=== PATIENT | male | born 1960 | race Caucasian/White ===

== ENCOUNTER 2017-02-02 17:08 | Emergency (ER) | payer OTHER ==
[2017-02-02] MEDS ORDERED: ASPIRIN 81 MG TABLET, CHEWABLE PO ONE (17:56)
--- NOTE | 2017-02-02 17:57 | ER Document Report ---
ED Medical Screen (RME) - General Chief Complaint: Chest Pain Stated Complaint: CHEST TIGHTNESS,LEFT ARM PAIN Time Seen by Provider: 02/02/17 17:56 Mode of Arrival: Ambulatory Information source: Patient Notes: 56-year-old male presents with complaints of chest pain left arm tingling sensation and headache. Patient denies any fevers or chills nausea vomiting diarrhea. Patient has a history of diabetes hypertension. Patient had a completely clean heart cath 2 years ago at [facility] have greeted and performed a rapid initial assessment of this patient. A comprehensive ED assessment and evaluation of the patient, analysis of test results and completion of the medical decision making process will be conducted by additional ED providers. PHYSICAL EXAMINATION: GENERAL: Well-appearing, well-nourished and in no acute distress. HEAD: Atraumatic, normocephalic. EYES: Pupils equal round extraocular movements intact, conjunctiva are normal. ENT: Nares patent NECK: Normal range of motion LUNGS: No respiratory distress Musculoskeletal: Normal range of motion NEUROLOGICAL: Normal speech, normal gait. PSYCH: Normal mood, normal affect. SKIN: Warm, Dry, normal turgor, no rashes or lesions noted. TRAVEL OUTSIDE OF THE [place] IN LAST 30 DAYS: No - Related Data Allergies/Adverse Reactions: codeine [Codeine] Allergy (Severe, Verified 02/02/17 17:18) morphine [Morphine] Allergy (Severe, Verified 02/02/17 17:18) Past Medical History - Past Medical History Cardiac Medical History: Reports: Hx Hypercholesterolemia, Hx Hypertension Renal/ Medical History: Denies: Hx Peritoneal Dialysis GI Medical History: Reports: Hx Gastroesophageal Reflux Disease Past Surgical History: Reports: Hx Cardiac Catheterization - 2014, Hx Tonsillectomy - Immunizations Hx Diphtheria, Pertussis, Tetanus Vaccination: Yes - unknown Physical Exam - Vital signs Vitals: Temp Pulse BP Pulse Ox 98.5 F 85 136/92 H 93 02/02/17 17:16 02/02/17 17:16 02/02/17 17:16 02/02/17 17:16 Course - Vital Signs Vital signs: Temp Pulse Resp BP Pulse Ox 98.5 F 85 136/92 H 93 02/02/17 17:16 02/02/17 17:16 02/02/17 17:16 02/02/17 17:16
[2017-02-02 18:54] LABS: ABSOLUTE EOSINOPHILS # (AUTO) 0.1 10^3/uL (0.0-0.6); ABSOLUTE LYMPHOCYTES (AUTO) 1.7 10^3/uL (0.5-4.7); ABSOLUTE MONOCYTES (AUTO) 0.6 10^3/uL (0.1-1.4); ABSOLUTE NEUT (AUTO) 4.1 10^3/uL (1.7-8.2); BASOPHILS % (AUTO) 0.2 % (0-2); EOSINOPHILS % (AUTO) 2.2 % (0-6); HEMATOCRIT 45.4 % (37.9-51.0); HEMOGLOBIN 15.6 g/dL (13.5-17.0); HGB HCT DIFFERENCE 1.4; LYMPHOCYTES % (AUTO) 26.1 % (13-45); MEAN CORPUSCULAR HEMOGLOBIN 31.5 pg (27.0-33.4); MEAN CORPUSCULAR HGB CONC 34.2 g/dL (32.0-36.0); MEAN CORPUSCULAR VOLUME 92 fl (80-97); MONOCYTES % (AUTO) 9.5 % (3-13); RED BLOOD COUNT 4.94 10^6/uL (4.35-5.55); RED CELL DISTRIBUTION WIDTH 13.3 % (11.5-14.0); WHITE BLOOD COUNT 6.7 10^3/uL (4.0-10.5)
[2017-02-02 19:05] VITALS: BP 152/102
[2017-02-02 19:16] LABS: ALANINE AMINOTRANSFERASE 44 U/L (21-72); ALBUMIN 4.1 g/dL (3.5-5.0); ALKALINE PHOSPHATASE 59 U/L (38-126); ANION GAP 12 (5-19); ASPARTATE AMINO TRANSFERASE 26 U/L (17-59); BILIRUBIN,DIRECT 0.4 mg/dL (0.0-0.4); BILIRUBIN,TOTAL 0.4 mg/dL (0.2-1.3); BLOOD UREA NITROGEN 17 mg/dL (7-20); CALCIUM 9.6 mg/dL (8.4-10.2); CARBON DIOXIDE 25 mmol/L (22-30); CHLORIDE 103 mmol/L (98-107); CREATINE KINASE 127 U/L (55-170); CREATININE RESULT 0.97 mg/dL (0.52-1.25); GLUCOSE 190 mg/dL (75-110); POTASSIUM 4.3 mmol/L (3.6-5.0); SODIUM 139.8 mmol/L (137-145); TOTAL PROTEIN 7.2 g/dL (6.3-8.2)
--- NOTE | 2017-02-02 19:17 | RADIOLOGY REPORT (SQ) ---
EXAM DESCRIPTION: CHEST SINGLE VIEW COMPLETED DATE/TIME: 02/02/2017 7:08 pm REASON FOR STUDY: left sided chest pain COMPARISON: June 2015 EXAM PARAMETERS: NUMBER OF VIEWS: One view. TECHNIQUE: Single frontal radiographic view of the chest acquired. RADIATION DOSE: NA LIMITATIONS: None. FINDINGS: LUNGS AND PLEURA: No opacities, masses or pneumothorax. No pleural effusion. MEDIASTINUM AND HILAR STRUCTURES: No masses. Contour normal. HEART AND VASCULAR STRUCTURES: Heart normal in size. Normal vasculature. BONES: No acute findings. HARDWARE: None in the chest. OTHER: No other significant finding. IMPRESSION: NO ACUTE RADIOGRAPHIC FINDING IN THE CHEST. TECHNICAL DOCUMENTATION: JOB ID: [id number]
[2017-02-02 19:32] LABS: CREATINE KINASE MB 1.19 ng/mL (<4.55)
[2017-02-02 19:35] LABS: TROPONIN I < 0.012 ng/mL
[2017-02-02] MEDS ORDERED: IBUPROFEN 800 MG TABLET PO ONE (19:42)
--- NOTE | 2017-02-02 19:42 | ER Document Report ---
ED Cardiac - General Chief Complaint: Chest Pain Stated Complaint: CHEST TIGHTNESS,LEFT ARM PAIN Time Seen by Provider: 02/02/17 17:56 Mode of Arrival: Ambulatory TRAVEL OUTSIDE OF THE [place] IN LAST 30 DAYS: No - HPI Patient complains to provider of: Other - left shoulder tightness since yesterday, states he was laying a floor two days ago. He states Use of: denies: Alcohol, Amphetamines, Bath salts, Caffeine, Cocaine, Decongestants, Other Was the onset of pain: Gradual When did pain begin: yesterday afternoon Is the pain a: New problem Chest pain location: Other - starts left medial arm into his neck Quality of pain: Constant, Achy Chest pain radiation location: Neck. denies: Left jaw, Left arm, Right jaw, Right arm, Back Severity now: Mild Severity at worst: Mild Chest pain precipitating factors: At Rest Cardiac risk factors: Diabetes, Hypertension, Dyslipidemia. denies: Smoker, + Family history, Hx CHF, Hx CT Positive cardiac history: No Associated symptoms: None Exacerbated by: Activity Relieved by: Rest Similar symptoms previously: Yes Recently seen / treated by doctor: No - Related Data Allergies/Adverse Reactions: codeine [Codeine] Allergy (Severe, Verified 02/02/17 17:18) morphine [Morphine] Allergy (Severe, Verified 02/02/17 17:18) Past Medical History - General Information source: Patient - Social History Smoking Status: Former Smoker Chew tobacco use (# tins/day): No Frequency of alcohol use: Occasional Drug Abuse: None Family History: Reviewed & Not Pertinent Patient has suicidal ideation: No Patient has homicidal ideation: No - Past Medical History Cardiac Medical History: Reports: Hx Hypercholesterolemia, Hx Hypertension Renal/ Medical History: Denies: Hx Peritoneal Dialysis GI Medical History: Reports: Hx Gastroesophageal Reflux Disease Past Surgical History: Reports: Hx Cardiac Catheterization - 2015, Hx Tonsillectomy - Immunizations Hx Diphtheria, Pertussis, Tetanus Vaccination: Yes - unknown Review of Systems - Review of Systems Notes: REVIEW OF SYSTEMS: CONSTITUTIONAL : Denies fever, chills, or sweats. Denies recent illness. EENT: Denies eye, ear, throat, or mouth pain or symptoms. Denies nasal or sinus congestion or discharge. Denies throat, tongue, or mouth swelling or difficulty swallowing. CARDIOVASCULAR: Denies chest pain. Denies palpitations or racing or irregular heart beat. Denies ankle edema. RESPIRATORY: Denies cough, cold, or chest congestion. Denies shortness of breath, difficulty breathing, or wheezing. GASTROINTESTINAL: Denies abdominal pain or distention. Denies nausea, vomiting , or diarrhea. Denies blood in vomitus, stools, or per rectum. Denies black, tarry stools. Denies constipation. GENITOURINARY: Denies difficulty urinating, painful urination, burning, frequency, blood in urine, or discharge. MUSCULOSKELETAL: Denies any muscle spasms, difficulty walking, extremity pain SKIN: Denies rash, lesions or sores. HEMATOLOGIC : Denies easy bruising or bleeding. LYMPHATIC: Denies swollen, enlarged glands. NEUROLOGICAL: Denies confusion or altered mental status. Denies passing out or loss of consciousness. Denies dizziness or lightheadedness. Denies headache. Denies weakness or paralysis or loss of use of either side. Denies problems with gait or speech. Denies sensory loss, numbness, or tingling. Denies seizures. PSYCHIATRIC: Denies anxiety or stress. Denies depression, suicidal ideation, or homicidal ideation. ALL OTHER SYSTEMS REVIEWED AND NEGATIVE. Dictation was performed using [employer] voice recognition software Physical Exam - Vital signs Vitals: Temp Pulse BP Pulse Ox 98.5 F 85 136/92 H 93 02/02/17 17:16 02/02/17 17:16 02/02/17 17:16 02/02/17 17:16 - Notes Notes: PHYSICAL EXAM GENERAL: Alert, interacts well. HEAD: Normocephalic, atraumatic. EYES: Pupils equal, round, and reactive to light. Extraocular movements intact. ENT: Oral mucosa moist, tongue midline. NECK: Full range of motion. Supple. Trachea midline. LUNGS: Clear to auscultation bilaterally, no wheezes, rales, or rhonchi. No respiratory distress. Chest nontender HEART: Regular rate and rhythm. No murmurs, gallops, or rubs. ABDOMEN: Soft, nondistended, nontender. No guarding, rebound, or rigidity.. Bowel sounds present in all 4 quadrants. EXTREMITIES: pain to palpation of left anterior shoulder and trapezius with pain reproducible to palpation. Moves all 4 extremities spontaneously. No edema , radial and dorsalis pedis pulses 2/4 bilaterally. No cyanosis. NEUROLOGICAL: Alert and oriented x4. Normal speech. PSYCH: Normal affect, normal mood. SKIN: Warm, dry, normal turgor. No rashes or lesions noted. Course - Re-evaluation Re-evalutation: 02/02/17 20:03 Patient is very well in appearance, vitals within normal limits. PE suggests muscle strain of the left shoulder. Low clinical suspicion for ACS given clinical history, exam, EKG without ST elevations or depressions, and negative initial troponin. HEART score less than or equal to 3. PE also seems unlikely given clinical history, absence of tachycardia or dyspnea. Well's score of 0. CXR without evidence of pneumothorax or pneumonia. No widened mediastinum. Aortic dissection also seems unlikely given history, symmetric pulses, CXR, and vitals. At this time will discharge with return precautions and follow-up recommendations. Verbal discharge instructions given a the bedside and opportunity for questions given. Medication warnings reviewed. Patient is in agreement with this plan and has verbalized understanding of return precautions and the need for primary care follow-up in the next 24-72 hours. - Vital Signs Vital signs: Temp Pulse Resp BP Pulse Ox 98.5 F 85 18 152/102 H 97 02/02/17 17:16 02/02/17 17:16 02/02/17 19:01 02/02/17 19:00 02/02/17 19:01 - Laboratory Result Diagrams: 02/02/17 18:45 02/02/17 18:45 Laboratory results interpreted by me: 02/02/17 18:45 Glucose 190 H - Diagnostic Test Radiology reviewed: Image reviewed, Reports reviewed - EKG Interpretation by Al EKG shows normal: Sinus rhythm Rate: Normal Rhythm: NSR When compared to previous EKG there are: No significant change Discharge - Discharge Clinical Impression: Left shoulder pain Qualifiers: Chronicity: acute Qualified Code(s): M25.512 - Pain in left shoulder Condition: Good Disposition: HOME, SELF-CARE Instructions: Muscle Strain ([facility]), Exercise Program for the Shoulder ([facility]), Shoulder Injury ([facility]), Use of [id number] Ibuprofen ([facility]), Ice & Elevation ([facility]) Prescriptions: Cyclobenzaprine HCl [Flexeril 10 mg Tablet] 10 mg PO TIDP PRN #15 tab PRN Reason: Forms: Return to Work
--- NOTE | 2017-02-03 08:12 | EKG REPORT ---
SEVERITY:- BORDERLINE ECG - SINUS RHYTHM BORDERLINE LEFT AXIS DEVIATION NONSPECIFIC ST-T CHANGES- INFERIOR LEADS : Confirmed by: Mj Caceres MD 03-Feb-2017 08:12:16
== END 2017-02-02 20:06 | disposition home or self-care (01) ==
LOC: ER 17:08
DX: M25.512 Pain in left shoulder (principal); R07.9 Chest pain, unspecified; K21.9 Gastro-esophageal reflux disease without esophagitis; E78.00 Pure hypercholesterolemia, unspecified; E11.9 Type 2 diabetes mellitus without complications; I10 Essential (primary) hypertension; Z88.6 Allergy status to analgesic agent; Z87.891 Personal history of nicotine dependence
CPT/HCPCS: 36415; 71010; 80053; 82550; 82553; 84484; 85025; 93005; 93010; 99285

== ENCOUNTER 2018-08-22 16:57 | Emergency (ER) | payer OTHER ==
[2018-08-22] MEDS ORDERED: NAPROXEN 250 MG TABLET PO ONE (17:39)
--- NOTE | 2018-08-22 17:39 | ER Document Report ---
ED General - General Chief Complaint: Facial Injury Stated Complaint: FACIAL INJURY Time Seen by Provider: 08/22/18 17:33 Primary Care Provider: ENID VALDERRAMA MD [ACTIVE STAFF] - Follow up in 3-5 days (primary care ) Notes: Patient is a 57-year-old male that presents to the emergency department for chief complaint of facial pain after injury. Patient states that he fell earlier today and he tripped and fell onto a counter and struck his upper lip on the counter. This occurred around 230 this afternoon. He denies loss of consciousness, denies any tooth injury or tripping his teeth or losing teeth. He denies any significant bleeding from injury. At this time he mainly complains of facial pain across his maxillary sinuses. Denies vision changes, blurred vision, loss of vision. He currently rates his pain as a 5 out of 10 describes as a constant aching sensation bilaterally across his face. Past Medical History: Denies chronic medical conditions Past Surgical History: Denies surgical history Social History: Denies tobacco use, admits to occasional alcohol use, denies illicit drug use. Family History: Reviewed and noncontributory for presenting illness Allergies: Reviewed, see documented allergy list. REVIEW OF SYSTEMS: Other than noted above, the 12 point review of systems was reviewed with the patient and were negative, all pertinent findings are included in the HPI. PHYSICAL EXAMINATION: Vital signs reviewed, nursing noted reviewed. GENERAL: Well-appearing, well-nourished and in no acute distress. HEAD: Minor abrasion to the upper lip, no step-offs or deformities. There is tenderness with palpation over the zygoma bilaterally, without step-off or deformity. EYES: Eyes appear normal, extraocular movements intact, sclera anicteric, conjunctiva are normal. ENT: nares patent, oropharynx clear without exudates. Moist mucous membranes. Teeth are well aligned, no step-off, mandible is nontender. No loose teeth appreciated. With palpation with tongue blade, TMs appear normal bilaterally, no hemotympanum, CSF rhinorrhea or otorrhea. NECK: Normal range of motion, supple without lymphadenopathy LUNGS: Breath sounds clear to auscultation bilaterally and equal. No wheezes rales or rhonchi. HEART: Regular rate and rhythm without murmurs ABDOMEN: Soft, nontender, normoactive bowel sounds. No rebound, guarding, or rigidity. No masses appreciated. EXTREMITIES: Nontender, good range of motion, no pitting or edema. NEUROLOGICAL: No focal neurological deficits. Moves all extremities spontaneously Motor and sensory grossly intact on exam. PSYCH: Normal mood, normal affect. SKIN: Warm, Dry, normal turgor, no rashes or lesions noted on exposed skin TRAVEL OUTSIDE OF THE [place] IN LAST 30 DAYS: No - Related Data Allergies/Adverse Reactions: codeine [Codeine] Allergy (Severe, Verified 02/02/17 17:18) morphine [Morphine] Allergy (Severe, Verified 02/02/17 17:18) Past Medical History - Social History Smoking Status: Former Smoker Family History: Reviewed & Not Pertinent - Past Medical History Cardiac Medical History: Reports: Hx Hypercholesterolemia, Hx Hypertension Renal/ Medical History: Denies: Hx Peritoneal Dialysis GI Medical History: Reports: Hx Gastroesophageal Reflux Disease Past Surgical History: Reports: Hx Cardiac Catheterization - 2014, Hx Tonsillectomy - Immunizations Hx Diphtheria, Pertussis, Tetanus Vaccination: Yes - unknown Physical Exam - Vital signs Vitals: Temp Pulse Resp BP Pulse Ox 98.5 F 81 16 158/95 H 95 08/22/18 17:02 08/22/18 17:02 08/22/18 17:02 08/22/18 17:02 08/22/18 17:02 Course - Re-evaluation Re-evalutation: Patient seen and examined, vital signs reviewed, did have some tenderness palpation over the across the face, without acute or gross deformities, however will obtain CT imaging of the facial bones to evaluate for any deep bony injury due to the nature of the patient's injury pattern. Patient was given naproxen for his pain. CT imaging came back, and was negative for any acute bony injury of the facial bones. Patient advised follow-up with a primary care physician, and given a prescription for naproxen to take for pain. - Vital Signs Vital signs: Temp Pulse Resp BP Pulse Ox 98.5 F 81 16 158/95 H 95 08/22/18 17:02 08/22/18 17:02 08/22/18 17:02 08/22/18 17:02 08/22/18 17:02 Discharge - Discharge Clinical Impression: Facial injury Qualifiers: Encounter type: initial encounter Qualified Code(s): S09.93XA - Unspecified injury of face, initial encounter Condition: Stable Disposition: HOME, SELF-CARE Instructions: Contusion ([facility]) Additional Instructions: Your imaging today did not demonstrate any broken bones or fractures, you did injure your face, which can cause pain over the next several days, you have been prescribed an anti-inflammatory medication to help alleviate some of this pain, you can also take Tylenol with this medication but do not take any Motrin, ibuprofen or Aleve. Prescriptions: Naproxen [Naprosyn] 500 mg PO BID PRN #30 tablet PRN Reason: general pain Referrals: ENID VALDERRAMA MD [ACTIVE STAFF] - Follow up in 3-5 days (primary care )
--- NOTE | 2018-08-22 18:37 | RADIOLOGY REPORT (SQ) ---
EXAM DESCRIPTION: CT FACIAL AREA WITHOUT COMPLETED DATE/TIME: 08/22/2018 6:18 pm REASON FOR STUDY: facial injury, pain of zygoma b/l COMPARISON: None. TECHNIQUE: Noncontrasted images through the facial bones and orbits windowed for bone and soft tissu e. Additional coronal and sagittal reconstructed images reviewed. All images stored on PACS. All CT scanners at this facility use dose modulation, iterative reconstruction, and/or weight based d osing when appropriate to reduce radiation dose to as low as reasonably achievable (ALARA). [facility]: Dose Right [facility]: CareDose [facility]: Dose Right [facility]: Teradose 4D [facility]: [employer] RADIATION DOSE: CT Rad equipment meets quality standard of care and radiation dose reduction techniq ues were employed. CTDIvol: 30.4 mGy. DLP: 602 mGy-cm. mGy. LIMITATIONS: None. FINDINGS: FACIAL BONES: No fracture or bone lesion. ORBITS: Intact. No fracture. Symmetric intact globes and retroorbital soft tissues. PARANASAL SINUSES: Mucous retention cyst in the left maxillary sinus. No nasal polyps. Maxillary sin us outlets are patent. SOFT TISSUES: No mass or edema. INFERIOR BRAIN: Limited view. No acute findings. OTHER: No other significant finding. IMPRESSION: NO ACUTE FINDINGS. TECHNICAL DOCUMENTATION: JOB ID: [id number] Quality ID # [id number]: Final reports with documentation of one or more dose reduction techniques (e.g., Au tomated exposure control, adjustment of the mA and/or kV according to patient size, use of iterative reconstruction technique) 2010 [employer]- All Rights Reserved Reading location - IP/workstation name: [email or web address]
[2018-08-22 19:40] VITALS: BP 149/97
== END 2018-08-22 19:42 | disposition home or self-care (01) ==
LOC: ER 16:57
DX: S09.93XA Unspecified injury of face, initial encounter (principal); R51 Headache; W18.00XA Striking against unspecified object with subsequent fall, initial encounter; I10 Essential (primary) hypertension
CPT/HCPCS: 70486; 99283

== ENCOUNTER 2018-10-27 12:11 | Emergency (ER) | payer OTHER ==
--- NOTE | 2018-10-27 14:36 | ER Document Report ---
ED Medical Screen (RME) - General Chief Complaint: Chest Pain Stated Complaint: CHEST PAIN Time Seen by Provider: 10/27/18 14:28 Mode of Arrival: Ambulatory Information source: Patient TRAVEL OUTSIDE OF THE [place] IN LAST 30 DAYS: No - HPI Patient complains to provider of: dizziness Notes: 10/27/18 14:35 Patient here feeling tired somewhat dizzy feeling he is in a fog and having some occasional chest tightness. No shortness of breath. He does have a history of diabetes, hypertension. They recently increased 1 of his antidiabetic medications, he states that his blood sugars have been running anywhere from 67 to the mid 100s which is much lower than normal for him. The increase the dose of this medication 2 weeks ago. Exam No distress, nontoxic-appearing. Lungs clear and equal throughout. Heart sounds normal. Nonfocal neurological exam. Plan CBC, CMP, troponin, TSH, EKG, chest x-ray An initial examination was made on the patient as part of the triage process, and it was determined a more comprehensive evaluation was necessary. Initial labs were ordered and patient was transferred to another provider in the ED who assumed care and finished evaluation and plan. - Related Data Allergies/Adverse Reactions: codeine [Codeine] Allergy (Severe, Verified 02/02/17 17:18) morphine [Morphine] Allergy (Severe, Verified 02/02/17 17:18) Past Medical History - Past Medical History Cardiac Medical History: Reports: Hx Hypercholesterolemia, Hx Hypertension Endocrine Medical History: Reports: Hx Diabetes Mellitus Type 2 Renal/ Medical History: Denies: Hx Peritoneal Dialysis GI Medical History: Reports: Hx Gastroesophageal Reflux Disease Past Surgical History: Reports: Hx Cardiac Catheterization - 2014, Hx Tonsillectomy - Immunizations Hx Diphtheria, Pertussis, Tetanus Vaccination: Yes - unknown Physical Exam - Vital signs Vitals: Temp Pulse Resp BP Pulse Ox 98.7 F 79 14 119/75 98 10/27/18 12:25 10/27/18 12:25 10/27/18 12:25 10/27/18 12:25 10/27/18 12:25 Course - Vital Signs Vital signs: Temp Pulse Resp BP Pulse Ox 98.7 F 79 14 119/75 98 10/27/18 12:25 10/27/18 12:25 10/27/18 12:25 10/27/18 12:25 10/27/18 12:25
[2018-10-27 15:09] LABS: ABSOLUTE EOSINOPHILS # (AUTO) 0.2 10^3/uL (0.0-0.6); ABSOLUTE LYMPHOCYTES (AUTO) 1.4 10^3/uL (0.5-4.7); ABSOLUTE MONOCYTES (AUTO) 0.6 10^3/uL (0.1-1.4); ABSOLUTE NEUT (AUTO) 5.2 10^3/uL (1.7-8.2); BASOPHILS % (AUTO) 0.7 % (0-2); EOSINOPHILS % (AUTO) 2.4 % (0-6); HEMATOCRIT 47.2 % (37.9-51.0); LYMPHOCYTES % (AUTO) 19.5 % (13-45); MEAN CORPUSCULAR HEMOGLOBIN 31.2 pg (27.0-33.4); MEAN CORPUSCULAR HGB CONC 33.9 g/dL (32.0-36.0); MEAN CORPUSCULAR VOLUME 92 fl (80-97); MONOCYTES % (AUTO) 7.8 % (3-13); PLATELET COUNT 252 10^3/uL (150-450); RED BLOOD COUNT 5.13 10^6/uL (4.35-5.55); RED CELL DISTRIBUTION WIDTH 13.7 % (11.5-14.0); SEGMENTED NEUTROPHILS % (AUTO) 69.6 % (42-78); TOTAL CELLS COUNTED % (AUTO) 100 %; WHITE BLOOD COUNT 7.4 10^3/uL (4.0-10.5)
--- NOTE | 2018-10-27 15:18 | RADIOLOGY REPORT (SQ) ---
EXAM DESCRIPTION: CHEST SINGLE VIEW COMPLETED DATE/TIME: 10/27/2018 3:04 pm REASON FOR STUDY: chest pain COMPARISON: 06/30/2015 EXAM PARAMETERS: NUMBER OF VIEWS: One view. TECHNIQUE: Single frontal radiographic view of the chest acquired. RADIATION DOSE: NA LIMITATIONS: None. FINDINGS: LUNGS AND PLEURA: No opacities, masses or pneumothorax. No pleural effusion. MEDIASTINUM AND HILAR STRUCTURES: No masses. Contour normal. HEART AND VASCULAR STRUCTURES: Heart normal in size. Normal vasculature. BONES: No acute findings. HARDWARE: None in the chest. OTHER: No other significant finding. IMPRESSION: NO ACUTE RADIOGRAPHIC FINDING IN THE CHEST. TECHNICAL DOCUMENTATION: JOB ID: [id number] [employer]- All Rights Reserved Reading location - IP/workstation name: [email or web address]
[2018-10-27 15:25] LABS: ALANINE AMINOTRANSFERASE 52 U/L (21-72); ALBUMIN 4.3 g/dL (3.5-5.0); ALKALINE PHOSPHATASE 50 U/L (38-126); ANION GAP 10 (5-19); ASPARTATE AMINO TRANSFERASE 27 U/L (17-59); BILIRUBIN,DIRECT 0.2 mg/dL (0.0-0.4); BILIRUBIN,TOTAL 0.3 mg/dL (0.2-1.3); BLOOD UREA NITROGEN 20 mg/dL (7-20); CALCIUM 10.3 mg/dL (8.4-10.2); CARBON DIOXIDE 27 mmol/L (22-30); CHLORIDE 103 mmol/L (98-107); GLUCOSE 136 mg/dL (75-110); POTASSIUM 4.4 mmol/L (3.6-5.0); SODIUM 140.4 mmol/L (137-145); TOTAL PROTEIN 7.1 g/dL (6.3-8.2)
--- NOTE | 2018-10-27 19:40 | EKG REPORT ---
SEVERITY:- OTHERWISE NORMAL ECG - SINUS RHYTHM BORDERLINE LEFT AXIS DEVIATION : Confirmed by: Sonal Brown MD 27-Oct-2018 19:40:02
--- NOTE | 2018-10-27 20:44 | ER Document Report ---
ED General - General Chief Complaint: Chest Pain Stated Complaint: CHEST PAIN Time Seen by Provider: 10/27/18 14:28 Primary Care Provider: TUSHAR,YO [Primary Care Provider] - Follow up as needed Mode of Arrival: Ambulatory Notes: Patient is a 57-year-old male that comes emergency department for chief complaint of 1 week of symptoms of tiredness, feeling like he is "in a fog", cough with occasional whitish sputum production, occasional sensation of "fullness" in the chest, and occasional lightheadedness. He denies dizziness, headache, focal numbness or weakness, current shortness of breath, chest pain, fever/chills, nausea/vomiting, abdominal pain. Past medical history includes hypertension, hyperlipidemia, type 2 diabetes, and a negative cardiac catheterization in 2014. He states that his blood sugar medication was doubled, his blood sugars are ranging from 70s to the 100s. He denies any current symptoms except cough and feeling tired. He denies smoking, reports occasional alcohol, denies recreational drugs. TRAVEL OUTSIDE OF THE [place] IN LAST 30 DAYS: No - Related Data Allergies/Adverse Reactions: codeine [Codeine] Allergy (Severe, Verified 02/02/17 17:18) morphine [Morphine] Allergy (Severe, Verified 02/02/17 17:18) Past Medical History - General Information source: Patient - Social History Smoking Status: Never Smoker Chew tobacco use (# tins/day): No Frequency of alcohol use: None Drug Abuse: None Family History: Reviewed & Not Pertinent Patient has suicidal ideation: No Patient has homicidal ideation: No - Past Medical History Cardiac Medical History: Reports: Hx Hypercholesterolemia, Hx Hypertension Endocrine Medical History: Reports: Hx Diabetes Mellitus Type 2 Renal/ Medical History: Denies: Hx Peritoneal Dialysis GI Medical History: Reports: Hx Gastroesophageal Reflux Disease Past Surgical History: Reports: Hx Cardiac Catheterization - 2014, Hx Tonsillectomy - Immunizations Hx Diphtheria, Pertussis, Tetanus Vaccination: Yes - unknown Review of Systems - Review of Systems Constitutional: See HPI EENT: No symptoms reported Cardiovascular: See HPI Respiratory: See HPI Gastrointestinal: No symptoms reported Genitourinary: No symptoms reported Male Genitourinary: No symptoms reported Musculoskeletal: No symptoms reported Skin: No symptoms reported Hematologic/Lymphatic: No symptoms reported Neurological/Psychological: No symptoms reported Physical Exam - Vital signs Vitals: Temp Pulse Resp BP Pulse Ox 98.7 F 79 14 119/75 98 10/27/18 12:25 10/27/18 12:25 10/27/18 12:25 10/27/18 12:25 10/27/18 12:25 - Notes Notes: GENERAL: Alert, interacts well. No acute distress. HEAD: Normocephalic, atraumatic. EYES: Pupils equal, round, and reactive to light. Extraocular movements intact. ENT: Oral mucosa moist, tongue midline. Oropharynx unremarkable. NECK: Full range of motion. Supple. Trachea midline. LUNGS: Clear to auscultation bilaterally, no wheezes, rales, or rhonchi. No respiratory distress. HEART: Regular rate and rhythm. No murmur ABDOMEN: Soft, non-tender. Non-distended. Bowel sounds present in all 4 quadrants. GENITOURINARY: Deferred EXTREMITIES: Moves all 4 extremities spontaneously. No edema, normal radial and dorsalis pedis pulses bilaterally. No cyanosis. BACK: no cervical, thoracic, lumbar midline tenderness. No saddle anesthesia, normal distal neurovascular exam. NEUROLOGICAL: Alert and oriented x3. Normal speech. Cranial nerves II through XII grossly intact. PSYCH: Normal affect, normal mood. SKIN: Warm, dry, normal turgor. No rashes or lesions noted. Course - Re-evaluation Re-evalutation: CBC, chemistry, troponin, TSH, chest x-ray unremarkable. Patient is vague with his symptoms, he is well-appearing on exam. I suspect patient is experiencing symptoms after being placed on double the amount of his oral type II diabetic medication. This most likely will require an adjustment.. He has no neurological deficits, no chest pain, no shortness of breath, and no current complaints on my evaluation. I discussed the findings, work-up, details with patient at length. Patient states satisfaction, states he just wanted to be checked out, he states that he will follow-up with his provider for additional considerations and management of his diabetes and symptoms. Discussed return p recautions. Patient states understanding and agreement. - Vital Signs Vital signs: Temp Pulse Resp BP Pulse Ox 97.9 F 87 20 132/77 H 95 10/27/18 21:22 10/27/18 21:22 10/27/18 21:22 10/27/18 21:22 10/27/18 21:22 - Laboratory Result Diagrams: 10/27/18 14:53 10/27/18 14:53 Laboratory results interpreted by me: 10/27/18 14:53 Glucose 136 H Calcium 10.3 H - EKG Interpretation by Me Additional EKG results interpreted by me: 10/27/18 20:56 EKG shows sinus rhythm at a rate of 72 changes in consecutive leads. Borderline left axis deviation present. QTC of 412, OK interval of 140. Discharge - Discharge Clinical Impression: Tiredness, Cough, Weakness Condition: Stable Disposition: HOME, SELF-CARE Additional Instructions: Your work-up does not show any concerning findings at this time. Chest x-ray, thyroid testing, chemistries, EKG, and heart enzymes without concerning findings at this time. Your cough appears to be a mild bronchitis, possibly allergic, this should resolve with time, continue antiallergy medications. Your symptoms are quite possibly from tighter glucose control, this takes an adjustment. For you to get used to. Follow-up with your primary care for additional management of this. Return if you worsen including pain in her chest, difficulty breathing, fever, passing out, vomiting, headache, or any other concerning or worsening symptoms. [facility]errals: [facility] [[facility]] - Follow up as needed
[2018-10-27 21:23] VITALS: BP 132/77
== END 2018-10-27 21:26 | disposition home or self-care (01) ==
LOC: ER 12:11
DX: R53.83 Other fatigue (principal); R42 Dizziness and giddiness; R53.1 Weakness; R09.89 Other specified symptoms and signs involving the circulatory and respiratory systems; R05 Cough; I10 Essential (primary) hypertension; E11.9 Type 2 diabetes mellitus without complications; Z79.84 Long term (current) use of oral hypoglycemic drugs; Z88.5 Allergy status to narcotic agent
CPT/HCPCS: 36415; 71045; 80053; 84443; 84484; 85025; 93005; 93010; 99285

== ENCOUNTER 2019-03-20 10:24 | Emergency (ER) | payer OTHER ==
--- NOTE | 2019-03-20 10:48 | ER Document Report ---
ED Medical Screen (RME) - General Chief Complaint: Chest Pain Stated Complaint: CHEST PAIN,DIFFICULTY BREATHING Time Seen by Provider: 03/20/19 10:42 Primary Care Provider: YO FINLEY [Primary Care Provider] - Follow up as needed TRAVEL OUTSIDE OF THE [place] IN LAST 30 DAYS: No - HPI Notes: 03/20/19 10:45 Patient is a 58-year-old male with a history of hypertension and diabetes who presents complaining of having a cough for 2 weeks, but developing chest pain, dyspnea on exertion, nausea that began this weekend. The pain is to the left side. Pain does not radiate. Patient states he also has low abdominal upset. Denies any prolonged immobilization, distance travel, recent surgery/trauma, personal cancer history, hormone use, smoking, or previous DVT/PE. I have treated and performed a rapid initial assessment of this patient. A comprehensive ED assessment and evaluation of the patient, analysis of test results and completion of medical decision making process will be conducted by additional ED providers. PHYSICAL EXAMINATION: GENERAL: Well-appearing, well-nourished and in no acute distress, but speaks in 4 word sentences. A&Ox4. Answers questions appropriately. LUNGS: Breath sounds clear to auscultation bilaterally and equal. No wheezes rales or rhonchi. HEART: Regular rate and rhythm without murmurs, rubs, gallops. Extremities: No cyanosis, clubbing, or edema b/l. Gemma negative bilaterally. No lower extremity asymmetry. - Related Data Allergies/Adverse Reactions: codeine [Codeine] Allergy (Severe, Verified 03/20/19 10:40) morphine [Morphine] Allergy (Severe, Verified 03/20/19 10:40) Past Medical History - Past Medical History Cardiac Medical History: Reports: Hx Hypercholesterolemia, Hx Hypertension Endocrine Medical History: Reports: Hx Diabetes Mellitus Type 2 Renal/ Medical History: Denies: Hx Peritoneal Dialysis GI Medical History: Reports: Hx Gastroesophageal Reflux Disease Past Surgical History: Reports: Hx Cardiac Catheterization - 2014, Hx Tonsillectomy - Immunizations Hx Diphtheria, Pertussis, Tetanus Vaccination: Yes - unknown Physical Exam - Vital signs Vitals: Temp Pulse Resp BP Pulse Ox 97.8 F 99 20 124/89 H 99 03/20/19 10:38 03/20/19 10:38 03/20/19 10:38 03/20/19 10:38 03/20/19 10:38 Course - Vital Signs Vital signs: Temp Pulse Resp BP Pulse Ox 97.8 F 99 20 124/89 H 99 03/20/19 10:38 03/20/19 10:38 03/20/19 10:38 03/20/19 10:38 03/20/19 10:38 Doctor's Discharge - Discharge [facility]errals: [facility] [[facility]] - Follow up as needed
[2019-03-20 11:36] LABS: ABSOLUTE BASOPHILS # (AUTO) 0.1 10^3/uL (0.0-0.2); ABSOLUTE EOSINOPHILS # (AUTO) 0.1 10^3/uL (0.0-0.6); ABSOLUTE LYMPHOCYTES (AUTO) 1.3 10^3/uL (0.5-4.7); ABSOLUTE MONOCYTES (AUTO) 0.7 10^3/uL (0.1-1.4); ABSOLUTE NEUT (AUTO) 4.4 10^3/uL (1.7-8.2); APPEARANCE,URINE CLEAR; BASOPHILS % (AUTO) 0.8 % (0-2); BILIRUBIN,URINE NEGATIVE (NEGATIVE); COLOR,URINE YELLOW; EOSINOPHILS % (AUTO) 1.9 % (0-6); GLUCOSE, URINE >=500 mg/dL (NEGATIVE); HEMATOCRIT 51.6 % (37.9-51.0); HEMOGLOBIN 17.7 g/dL (13.5-17.0); KETONES,URINE TRACE mg/dL (NEGATIVE); LEUKOCYTE ESTERASE,URINE NEGATIVE (NEGATIVE); LYMPHOCYTES % (AUTO) 20.1 % (13-45); MEAN CORPUSCULAR HEMOGLOBIN 31.3 pg (27.0-33.4); MEAN CORPUSCULAR HGB CONC 34.3 g/dL (32.0-36.0); MEAN CORPUSCULAR VOLUME 91 fl (80-97); MONOCYTES % (AUTO) 11.1 % (3-13); NITRITE,URINE NEGATIVE (NEGATIVE); PLATELET COUNT 262 10^3/uL (150-450); PROTEIN,URINE NEGATIVE (NEGATIVE); RED BLOOD COUNT 5.65 10^6/uL (4.35-5.55); RED CELL DISTRIBUTION WIDTH 13.3 % (11.5-14.0); SEGMENTED NEUTROPHILS % (AUTO) 66.1 % (42-78); TOTAL CELLS COUNTED % (AUTO) 100 %; URINE SPECIFIC GRAVITY 1.038; UROBILINOGEN,URINE NEGATIVE mg/dL (<2.0); WHITE BLOOD COUNT 6.6 10^3/uL (4.0-10.5)
[2019-03-20 11:50] LABS: ALBUMIN 4.3 g/dL (3.5-5.0); ALKALINE PHOSPHATASE 48 U/L (38-126); ANION GAP 13 (5-19); ASPARTATE AMINO TRANSFERASE 45 U/L (17-59); BILIRUBIN,DIRECT 0.2 mg/dL (0.0-0.4); BILIRUBIN,TOTAL 0.6 mg/dL (0.2-1.3); BLOOD UREA NITROGEN 17 mg/dL (7-20); CALCIUM 10.7 mg/dL (8.4-10.2); CARBON DIOXIDE 20 mmol/L (22-30); CHLORIDE 105 mmol/L (98-107); GLUCOSE 95 mg/dL (75-110); POTASSIUM 3.9 mmol/L (3.6-5.0); TOTAL PROTEIN 7.2 g/dL (6.3-8.2)
[2019-03-20 12:02] LABS: NT PRO BNP < 11 pg/mL (5-900); TROPONIN I < 0.012 ng/mL
--- NOTE | 2019-03-20 12:06 | EKG REPORT ---
SEVERITY:- OTHERWISE NORMAL ECG - SINUS TACHYCARDIA BORDERLINE LEFT AXIS DEVIATION : Confirmed by: Sonal Brown MD 20-Mar-2019 12:05:31
--- NOTE | 2019-03-20 12:23 | RADIOLOGY REPORT (SQ) ---
EXAM DESCRIPTION: CHEST 2 VIEWS COMPLETED DATE/TIME: 03/20/2019 11:22 am REASON FOR STUDY: SOB, CP, cough COMPARISON: 10/27/2018 EXAM PARAMETERS: NUMBER OF VIEWS: two views TECHNIQUE: Digital Frontal and Lateral radiographic views of the chest acquired. RADIATION DOSE: NA LIMITATIONS: none FINDINGS: LUNGS AND PLEURA: No opacities, masses or pneumothorax. No pleural effusion. MEDIASTINUM AND HILAR STRUCTURES: No masses or contour abnormalities. HEART AND VASCULAR STRUCTURES: Heart normal size. No evidence for failure. BONES: No acute findings. HARDWARE: None in the chest. OTHER: No other significant finding. IMPRESSION: No focal airspace disease or other evidence of acute cardiopulmonary process. TECHNICAL DOCUMENTATION: JOB ID: [id number] [employer]- All Rights Reserved Reading location - IP/workstation name: [email or web address]
[2019-03-20] MEDS: NORMAL SALINE 1000 ML 1,000 ML IV PRN ×2 (13:50→13:51)
--- NOTE | 2019-03-20 13:52 | ER Document Report ---
ED General - General Chief Complaint: Shortness Of Breath Stated Complaint: CHEST PAIN,DIFFICULTY BREATHING Time Seen by Provider: 03/20/19 10:42 Primary Care Provider: [facility] [Primary Care Provider] - Follow up as needed Notes: 58-year-old male with a history of hypertension and diabetes who presents complaining of having a cough for 2 weeks and left-sided nonradiating chest pain intermittent over the weekend. Patient also complains of dyspnea on exertion and nausea that began this weekend. Pain does not radiate. Patient states he also has low abdominal upset. Patient states she was seen in his primary 2 weeks ago and clinically diagnosed with pneumonia and placed on doxycycline. [facility] which he started on Wednesday. Denies any prolonged immobilization, distance travel, recent surgery/trauma, personal cancer history, hormone use, smoking, or previous DVT/PE. TRAVEL OUTSIDE OF THE [place] IN LAST 30 DAYS: No - Related Data Allergies/Adverse Reactions: codeine [Codeine] Allergy (Severe, Verified 03/20/19 10:40) morphine [Morphine] Allergy (Severe, Verified 03/20/19 10:40) Past Medical History - Social History Smoking Status: Former Smoker Chew tobacco use (# tins/day): Yes Frequency of alcohol use: Rare Drug Abuse: None Family History: Reviewed & Not Pertinent Patient has suicidal ideation: No Patient has homicidal ideation: No - Past Medical History Cardiac Medical History: Reports: Hx Hypercholesterolemia, Hx Hypertension Endocrine Medical History: Reports: Hx Diabetes Mellitus Type 2 Renal/ Medical History: Denies: Hx Peritoneal Dialysis GI Medical History: Reports: Hx Gastroesophageal Reflux Disease Past Surgical History: Reports: Hx Cardiac Catheterization - 2014, Hx Tons illectomy - Immunizations Hx Diphtheria, Pertussis, Tetanus Vaccination: Yes - unknown Review of Systems - Review of Systems Constitutional: See HPI EENT: No symptoms reported Cardiovascular: See HPI Respiratory: See HPI Gastrointestinal: See HPI Genitourinary: No symptoms reported Male Genitourinary: No symptoms reported Musculoskeletal: No symptoms reported Skin: No symptoms reported Hematologic/Lymphatic: No symptoms reported Neurological/Psychological: See HPI Physical Exam - Vital signs Vitals: Temp Pulse Resp BP Pulse Ox 97.8 F 99 20 124/89 H 99 03/20/19 10:38 03/20/19 10:38 03/20/19 10:38 03/20/19 10:38 03/20/19 10:38 - Notes Notes: PHYSICAL EXAMINATION: Reviewed vital signs and charting by RN GENERAL: Alert, interacts well. No acute distress. HEAD: Normocephalic, atraumatic. EYES: Pupils equal and round. Extraocular movements intact. ENT: Oral mucosa moist, tongue midline. NECK: Full range of motion. Trachea midline. LUNGS: Clear to auscultation bilaterally, no wheezes, rales, or rhonchi. No respiratory distress. HEART: Regular rate and rhythm. No murmur ABDOMEN: soft, non-tender. No distention. Bowel sounds present EXTREMITIES: Moves all 4 extremities spontaneously. No edema, No cyanosis. PSYCH: Normal affect, normal mood. SKIN: Warm, dry, normal turgor. No rashes or lesions noted. Course - Re-evaluation Re-evalutation: 03/20/19 13:50 Generally well-appearing and nontoxic. Lab work unremarkable other than a hemoglobin of 17.7. Initial troponin negative. Heart score 2. Orthostatic vital signs were positive and patient will receive fluids and I will reassess. Chest x-ray did not show any evidence of pneumonia. 03/20/19 15:10 Patient got 2 L of fluid and orthostatic vitals have been reordered. Patient has a Wells score of 1.5 and I cannot PERC him out. Regardless, he is mildly borderline hypoxic and EKG showed a sinus tachycardia so I am going to proceed with CTA of the chest. I do suspect that there is a dehydration component along with his persistent cough but cannot rule out PE at this time. 03/20/19 16:22 CTA was negative for any pulmonary embolism and incidentally did not show any pulmonary infiltrate or any evidence of a pneumonia. Patient still is subjectively, acutely short of breath when he ambulates I am going to ambulate him with SPO2 and complete orthostatics. 03/20/19 17:09 Orthostatics were normal after receiving fluid resuscitation. Patient ambulated with no problem on SPO2 and his sats have been 99 to 100%. At this time I suspect his. I explained all of the findings with the patient, he agrees with them and is stable for discharge. - Vital Signs Vital signs: Temp Pulse Resp BP Pulse Ox 97.8 F 87 11 L 153/92 H 97 03/20/19 10:38 03/20/19 15:53 03/20/19 13:29 03/20/19 15:53 03/20/19 13:29 - Laboratory Result Diagrams: 03/20/19 11:19 03/20/19 11:19 Laboratory results interpreted by me: 03/20/19 03/20/19 03/20/19 11:19 11:19 11:19 RBC 5.65 H Hgb 17.7 H Hct 51.6 H Carbon Dioxide 20 L Calcium 10.7 H Urine Glucose (UA) >=500 H Urine Ketones TRACE H Discharge - Discharge Clinical Impression: Cough, Shortness of breath Condition: Good Disposition: HOME, SELF-CARE Additional Instructions: You were seen for symptoms most consistent with bronchitis. This can take up to 12 weeks to fully resolve. This is generally due to a viral infection. Please follow-up with your primary doctor in the next 2-3 days. Return if you develop worsening cough, vomiting, fever >102, pass out, begin coughing blood, or have any other symptoms that are concerning to you. Please use the medications prescribed today as directed. Referrals: [facility] [[facility]] - Follow up as needed
[2019-03-20] MEDS ORDERED: IPRATROPIUM/ALBUTEROL 0.5-2.5 MG/3 ML AMPUL NEB ONE (15:00)
--- NOTE | 2019-03-20 16:05 | RADIOLOGY REPORT (SQ) ---
EXAM DESCRIPTION: CTA CHEST COMPLETED DATE/TIME: 03/20/2019 3:54 pm REASON FOR STUDY: PECK, mild hypoxia COMPARISON: Same day chest radiograph, CT chest, 02/16/2012 TECHNIQUE: CT scan of the chest performed using helical scanning technique with dynamic intravenous contrast injection. Images reviewed with lung, soft tissue and bone windows. Reconstructed coronal and sagittal MPR images reviewed. Additional 3 dimensional post-processing performed to develop Maximal Intensity Projection images (AR P). All images stored on PACS. All CT scanners at this facility use dose modulation, iterative reconstruction, and/or weight based d osing when appropriate to reduce radiation dose to as low as reasonably achievable (ALARA). [facility]: Dose Right [facility]: CareDose [facility]: Dose Right [facility]: Teradose 4D [facility]: GradeBeam CONTRAST TYPE AND DOSE: contrast/concentration: Isovue 350.00 mg/ml; Total Contrast Delivered: 68.0 ml; Total Saline Delivered: 72.0 ml Contrast bolus adequate for pulmonary arteries and aorta. RENAL FUNCTION: GFR > 60. RADIATION DOSE: CT Rad equipment meets quality standard of care and radiation dose reduction techniq ues were employed. CTDIvol: 19.8 - 25.8 mGy. DLP: 1020 mGy-cm. . LIMITATIONS: None. FINDINGS: LUNGS AND PLEURA: No masses, infiltrates, or pneumothorax. No pleural effusions or pleura l calcifications. AORTA AND GREAT VESSELS: No aneurysm. Contrast bolus not optimized for the aorta. HEART: No pericardial effusion. No significant coronary artery calcifications. PULMONARY ARTERIES: No emboli visualized in the main pulmonary arteries or the segmental branches. HILAR AND MEDIASTINAL STRUCTURES: No identified masses. There prominent bilateral hilar lymph nodes, not significantly changed compared to prior examination dated 2011. HARDWARE: None in the chest. UPPER ABDOMEN: No significant findings. Limited exam. THYROID AND OTHER SOFT TISSUES: No masses. No adenopathy. BONES: No acute or significant finding. 3D MIPS: Confirm above findings. OTHER: No other significant finding. IMPRESSION: Negative examination for pulmonary embolism. COMMENT: Quality ID # [id number]: Final reports with documentation of one or more dose reduction techniques (e.g., Automated exposure control, adjustment of the mA and/or kV according to patient size, use of iterative reconstruction technique) TECHNICAL DOCUMENTATION: JOB ID: [id number] [employer]- All Rights Reserved Reading location - IP/workstation name: [email or web address]
[2019-03-20] MEDS ORDERED: ALBUTEROL SULFATE HFA (90 MCG/PUFF) 8 GM MDI (1 MDI/ER DISP) IH ONE (17:10)
[2019-03-20 18:07] VITALS: BP 140/94
== END 2019-03-20 17:35 | disposition home or self-care (01) ==
LOC: ER 10:24
DX: R06.02 Shortness of breath (principal); R07.9 Chest pain, unspecified; R05 Cough; E78.00 Pure hypercholesterolemia, unspecified; I10 Essential (primary) hypertension; E11.9 Type 2 diabetes mellitus without complications; Z88.6 Allergy status to analgesic agent
CPT/HCPCS: 93005; 94640; 99285; 96360; 96361; 36415; 83690; 85025; 80053; 81001; 84484; 83880; 71046; 71275; 93010; J7030; J3490; J7620

== ENCOUNTER 2020-03-28 08:11 | Day surgery (SDC) | payer OTHER ==
[2020-03-27 10:48] LABS: HEMATOCRIT 47.3 % (37.9-51.0); HEMOGLOBIN 16.2 g/dL (13.5-17.0); MEAN CORPUSCULAR HGB CONC 34.3 g/dL (32.0-36.0); MEAN CORPUSCULAR VOLUME 96 fl (80-97); PLATELET COUNT 277 10^3/uL (150-450); RED BLOOD COUNT 4.92 10^6/uL (4.35-5.55); RED CELL DISTRIBUTION WIDTH 13.6 % (11.5-14.0); WHITE BLOOD COUNT 6.5 10^3/uL (4.0-10.5)
[2020-03-27 11:14] LABS: ANION GAP 12 (5-19); BLOOD UREA NITROGEN 19 mg/dL (7-20); CALCIUM 9.9 mg/dL (8.4-10.2); CARBON DIOXIDE 26 mmol/L (22-30); CHLORIDE 102 mmol/L (98-107); GLUCOSE 159 mg/dL (75-110); POTASSIUM 4.4 mmol/L (3.6-5.0)
--- NOTE | 2020-03-27 15:14 | EKG REPORT ---
SEVERITY:- BORDERLINE ECG - SINUS RHYTHM BORDERLINE LEFT AXIS DEVIATION TALL R WAVE IN V2, CONSIDER RVH OR PMI BORDERLINE T ABNORMALITIES, INFERIOR LEADS : Confirmed by: Sonal Brown MD 27-Mar-2020 15:13:57
[~2020-03-28 08:11] MED LIST: BUPIVACAINE HCL 0.5 % INJ/PF 30 ML SDV ONE; CEFAZOLIN 2 GM/D5W RTU 2 GM/50 ML RTUPB IV PRN; CEFAZOLIN SODIUM 2 GM in DEXTROSE 5%-WATER 100 ML IV PRN; EPINEPHRINE INJ/PF 1 MG/1 ML AMPULE ONE; KETOROLAC TROMETHAMINE INJ/PF 30 MG/1 ML SDV ONE; LACTATED RINGERS 1000 ML IV PRN; LIDOCAINE 0.5% INJ-PF (5 MG/ML) 50 ML SDV SUBCUT PRN; LIDOCAINE 1% INJ-PF (10 MG/ML) 30 ML SDV ONE
[2020-03-28 09:26] LABS: APPEARANCE,URINE CLEAR; BILIRUBIN,URINE NEGATIVE (NEGATIVE); COLOR,URINE YELLOW; GLUCOSE, URINE >=500 mg/dL (NEGATIVE); KETONES,URINE TRACE mg/dL (NEGATIVE); LEUKOCYTE ESTERASE,URINE NEGATIVE (NEGATIVE); NITRITE,URINE NEGATIVE (NEGATIVE); PROTEIN,URINE NEGATIVE (NEGATIVE); URINE SPECIFIC GRAVITY 1.033; UROBILINOGEN,URINE NEGATIVE mg/dL (<2.0)
[2020-03-28] MEDS ORDERED: FENTANYL CITRATE INJ/PF 100 MCG/2 ML AMPUL ONE ×2 (09:48→12:04)
[2020-03-28] MEDS ORDERED: ONDANSETRON HCL INJ/PF 4 MG/2 ML SDV ONE (09:48)
[2020-03-28] MEDS ORDERED: LIDOCAINE 2% INJ-PF (20 MG/ML) 10 ML AMPUL ONE (09:48)
[2020-03-28] MEDS ORDERED: PROPOFOL INJ 200 MG/20 ML VIAL IV ONE (09:48)
[2020-03-28] MEDS ORDERED: MIDAZOLAM 2 MG/2 ML INJ ONE (09:48)
--- NOTE | 2020-03-28 09:51 | RADIOLOGY REPORT (SQ) ---
EXAM DESCRIPTION: CHEST SINGLE VIEW IMAGES COMPLETED DATE/TIME: 03/28/2020 9:39 am REASON FOR STUDY: pre-operative COMPARISON: 03/20/2019. EXAM PARAMETERS: NUMBER OF VIEWS: One view. TECHNIQUE: Single frontal radiographic view of the chest acquired. RADIATION DOSE: NA LIMITATIONS: None. FINDINGS: LUNGS AND PLEURA: No opacities, masses or pneumothorax. No pleural effusion. MEDIASTINUM AND HILAR STRUCTURES: No masses. Contour normal. HEART AND VASCULAR STRUCTURES: Heart normal in size. Normal vasculature. BONES: No acute findings. HARDWARE: None in the chest. OTHER: No other significant finding. IMPRESSION: NO ACUTE RADIOGRAPHIC FINDING IN THE CHEST. TECHNICAL DOCUMENTATION: JOB ID: [id number] [employer]- All Rights Reserved Reading location - IP/workstation name: [email or web address]
[2020-03-28] MEDS ORDERED: CEFAZOLIN 2 GM/D5W RTU 2 GM/50 ML RTUPB IV ONE (10:10)
[2020-03-28] MEDS ORDERED: DEXAMETHASONE SOD PHOSPHATE INJ 4 MG/1 ML VIAL ONE (10:11)
[2020-03-28] MEDS ORDERED: HYDROMORPHONE HCL INJ/PF 2 MG/ML AMPULE ONE (10:11)
[2020-03-28] MEDS ORDERED: PROMETHAZINE HCL INJ 25 MG/1 ML VIAL IV PRN ×2 (10:36)
[2020-03-28] MEDS ORDERED: DIPHENHYDRAMINE HCL 50 MG/ML VIAL IV PRN (10:36)
[2020-03-28] MEDS ORDERED: FENTANYL CITRATE INJ/PF 100 MCG/2 ML AMPUL IV PRN ×3 (10:36)
[2020-03-28] MEDS ORDERED: MEPERIDINE HCL/PF INJ 25 MG/1 ML DISP.SYRIN IV PRN (10:36)
--- NOTE | 2020-03-28 11:43 | Operative Report ---
Operative Report DATE OF SURGERY: 03/28/20 PREOPERATIVE DIAGNOSIS: Right knee medial meniscus tear POSTOPERATIVE DIAGNOSIS: Right knee medial meniscus tear, multifocal chondral loss, hypertrophic fat pad. OPERATION: Right knee arthroscopy, partial medial meniscectomy, chondroplasty, partial fat pad resection. SURGEON: GABI GONZALEZ JR ANESTHESIA: GA COMPLICATIONS: None ESTIMATED BLOOD LOSS: 5cc PROCEDURE: DESCRIPTION OF THE PROCEDURE: The patient was placed supine on the operating room table. After the patient was placed under general anesthesia, and appropriate timeout was performed. The patient was prepped and draped in the usual sterile fashion for arthroscopic surgery. The left lower extremity was then exsanguinated with the use of an Esmarch bandage and the tourniquet was inflated to 280 mmHg. The operation commenced with creation of the lateral portal with an 11 blade. The arthroscope was directed into the suprapatellar pouch with the knee held in extension. A systematic examination of the right knee was begun arthroscopically. The patellofemoral articulation was visualized and generally healthy cartilage at the patellofemoral articulation was found. There was hypertrophic fat pad that intervened at the inferior aspect of the patella. The medial gutter was entered. No loose bodies were identified. The medial compartment was then entered and the medial portal was established under direct visualization with a spinal needle. The arthroscopic probe was used to inspect the contents of the medial compartment. The meniscus was inspected and a complex posterior medial tear was found with a near complete radial component as well as horizontal cleavage tears on either side of the radial component. There was also a portion of tear along the posterior root that had displaced and flipped posteriorly. I proceeded to debride this with a straight biter and an upbiter until a stable base was achieved. After this a suction shaver was used to evacuate all loose fragments and further clean the edges of the remaining meniscus. A probe was used to inspect the stability of the remaining meniscus. After satisfactory resection, chondroplasty of the medial femoral condyle was performed at areas of cartilage fraying and unstable laminar degeneration. There was a focal 1 x 1 cm area on the weightbearing surface of the medial femoral condyle. This was debrided back to a stable base. Images were taken throughout the procedure. The notch was then visualized. The anterior cruciate ligament and PCL were found to be intact. The arthroscope was directed into the lateral compartment. Notch fat pad and ligamentum mucosum tissue were resected with a suction shaver in order to better visualize the lateral compartment. In this case the fat pad was hypertrophic and also obscured adequate visualization of the medial compartment requiring resection prior to entering into the notch. The meniscus was ins pected with a probe and found to be stable and without any notable pathology. A subsequently the lateral femoral condyle and the lateral tibial plateau were inspected with a probe. This found grade 2 changes were found throughout the lateral tibial plateau, however the lateral femoral condyle had no notable degeneration of the cartilage. The patellofemoral compartment was revisited and it was found to be clear of any impinging synovium or fat pad. A mixture of Marcaine, lidocaine and toradol was injected into the right knee. The instruments were then removed. The portals were closed with 3-0 nylon and Xeroform and a light compressive dressing was applied. The tourniquet was deflated. The patient was recovered from his anesthetic and was returned to the recovery room in stable condition. There were no complications.
--- NOTE | 2020-03-28 11:47 | Discharge Summary ---
Discharge Summary (SDC) - Discharge Final Diagnosis: Right knee medial meniscus tear Date of Surgery: 03/28/20 Discharge Date: 03/28/20 Condition: Stable Treatment or Instructions: Full details of postoperative instructions have been provided to the patient in the clinic. Additionally they should maintain their bandage in place or change as needed for any saturation. They are to avoid getting the wound wet or submerging in a bath. No showers with the wound unprotected until cleared by me in the clinic. Patient is allowed to ambulate as tolerated however crutches have been encouraged as he returns to function safely. Prescriptions for pain medication of been given preoperatively. Follow-up with Dr. Ravi Mckeon, orthopedic surgeon at [facility] for surgery, in 10 days. Call for an appointment. . [address], [place] [address] Referrals: [facility] [[facility]] - Discharge Diet: As Tolerated Respiratory Treatments at Home: Deep Breathing/Coughing Discharge Activity: Activity As Tolerated, No Driving, Keep Legs Elevated, Slowly Increase Activity, No tub bath, Walk Frequently Adaptive Devices on Discharge: Axillary Crutches Report the Following to Your Physician Immediately: Shortness of Breath, Fever over 101 Degrees, Unusual Bleeding, Drainage-Yellow
[2020-03-28] MEDS ORDERED: OXYCODONE HCL IR 5 MG TABLET PO PRN (12:01)
[2020-03-28] MEDS ORDERED: PANTOPRAZOLE SODIUM 20 MG TABLET.DR PO ONE (12:01)
[2020-03-28] MEDS ORDERED: TRAMADOL HCL 50 MG TABLET PO PRN (12:01)
[2020-03-28] MEDS ORDERED: DIPHENHYDRAMINE HCL 25 MG CAPSULE PO PRN (12:01)
[2020-03-28] MEDS ORDERED: DEXAMETHASONE SOD PHOS INJ 10 MG/1 ML VIAL IV ONE (12:01)
[2020-03-28] MEDS ORDERED: ONDANSETRON 4 MG TAB.RAPDIS PO PRN (12:01)
[2020-03-28] MEDS ORDERED: MORPHINE SULFATE 10 MG/ML INJ IV PRN (12:01)
[2020-03-28] MEDS ORDERED: OXYCODONE HCL IR 5 MG TABLET ONE (12:09)
[2020-03-28] MEDS ORDERED: ACETAMINOPHEN 325 MG TABLET PO SCH (12:15)
[2020-03-28] MEDS ORDERED: KETOROLAC TROMETHAMINE INJ/PF 30 MG/1 ML SDV IV SCH (14:00)
[2020-03-28 17:54] VITALS: BP 144/96
== END 2020-03-28 13:40 | disposition home or self-care (01) ==
LOC: OROUT 08:11
PROVIDERS: ATTEND Orthopaedic Surgery
DX: S83.241A Other tear of medial meniscus, current injury, right knee, initial encounter (principal); X58.XXXA Exposure to other specified factors, initial encounter; E78.00 Pure hypercholesterolemia, unspecified; I10 Essential (primary) hypertension; E11.9 Type 2 diabetes mellitus without complications; Z87.891 Personal history of nicotine dependence; Z79.84 Long term (current) use of oral hypoglycemic drugs; K21.9 Gastro-esophageal reflux disease without esophagitis; Z79.899 Other long term (current) drug therapy; Z79.82 Long term (current) use of aspirin; Z88.5 Allergy status to narcotic agent; M79.4 Hypertrophy of (infrapatellar) fat pad; R01.1 Cardiac murmur, unspecified
CPT/HCPCS: 29999; 29881; 93005; 36415; 82962; 85027; 80048; 81001; 83036; 71045; 93010; 01400; J2250; J3490 ×3; J1100; J0171; J3010; J1885; J1170; J2405; J2704; J0690; 1400; J7060

== ENCOUNTER 2020-04-06 08:51 | Emergency (ER) | payer OTHER ==
[2020-04-06] MEDS ORDERED: NORMAL SALINE 500 ML IV ONE (10:51)
[2020-04-06] MEDS ORDERED: KETOROLAC TROMETHAMINE INJ/PF 30 MG/1 ML SDV IV ONE (10:52)
[2020-04-06] MEDS ORDERED: HYDROMORPHONE HCL INJ/PF 2 MG/ML AMPULE IV ONE (10:52)
--- NOTE | 2020-04-06 11:02 | ER Document Report ---
ED Extremity Problem, Lower - General Chief Complaint: Thigh Pain Stated Complaint: RIGHT KNEE/LEGPAIN,POST SURGERY Time Seen by Provider: 04/06/20 10:15 Primary Care Provider: TUSHAR,YO [Primary Care Provider] - Follow up as needed Notes: 59-year-old male presented to the emergency department with a history of menis cus surgery on the right knee 2 weeks ago. He complains of increased pain in the lower back on the right-hand side as well as shooting pain through the leg to the point that he is unable to get comfortable. There was a period of swelling in the right thigh postsurgical and post surgery bruising involving the lateral and medial aspects of the thigh. Patient notes that his pain has been worsening and last night he could not get comfortable. Taking codeine which she has an adverse medication reaction related to irritability. He has a past medical history of hypertension and type 2 diabetes mellitus. TRAVEL OUTSIDE OF THE [place] IN LAST 30 DAYS: No - Related Data Allergies/Adverse Reactions: codeine [Codeine] Allergy (Severe, Verified 04/06/20 14:51) Violent morphine [Morphine] Allergy (Severe, Verified 04/06/20 14:51) Too sedated, told not to take again Home Medications: aspirin 325mg. metformin 1000mg BID. glipizide. Jardance 20mg daily. Lisinorpil 2mg Past Medical History - Social History Smoking Status: Never Smoker Chew tobacco use (# tins/day): No Frequency of alcohol use: None Drug Abuse: None Family History: Reviewed & Not Pertinent - Past Medical History Cardiac Medical History: Reports: Hx Hypercholesterolemia, Hx Hypertension Denies: Hx Coronary Artery Disease, Hx Heart Attack Pulmonary Medical History: Denies: Hx Asthma, Hx Bronchitis, Hx COPD, Hx Pneumonia Neurological Medical History: Denies: Hx Cerebrovascular Accident, Hx Seizures Endocrine Medical History: Reports: Hx Diabetes Mellitus Type 2 Renal/ Medical History: Denies: Hx Peritoneal Dialysis GI Medical History: Reports: Hx Gastroesophageal Reflux Disease Musculoskeletal Medical History: Reports Hx Arthritis - Knees Past Surgical History: Reports: Hx Cardiac Catheterization - 2014, Hx Orthopedic Surgery - right miniscus repair, Hx Tonsillectomy - Immunizations Hx Diphtheria, Pertussis, Tetanus Vaccination: Yes Physical Exam - Vital signs Vitals: Temp Pulse Resp BP Pulse Ox 97.4 F 81 18 135/93 H 99 04/06/20 08:58 04/06/20 08:58 04/06/20 08:58 04/06/20 08:58 04/06/20 08:58 - Notes Notes: PHYSICAL EXAMINATION: Physical Exam: General: Well-nourished well-developed in no acute distress HEENT: NC/AT, pupils equal round and reactive to light, MM moist,nares clear, oropharynx clear, airway patent Neck: supple, no adenopathy, no masses. Good range of motion Lungs: clear, no wheezing, no rales no rhonchi CVS: Regular rate and rhythm no murmur gallop or rub Abdomen: Soft, active, nontender, no masses, no hepatosplenomegaly Back: Tenderness in the right paraspinous lumbar region, tenderness over the SI joint right side. Decreased range of motion secondary to tenderness. Ext: Right thigh with lateral and medial bruising, yellowish discoloration around the subcutaneous blood tenderness to palpation with increased pain on flexion of the knee. Right knee with 2 areas of stricturing noted a incision for arthroscopic procedure. These areas are well-healed with no signs of infection. The knee is nontender to palpation and no pain with flexion and extension. The lower leg no calf muscle tenderness and the ankle reveals no swelling he has good dorsalis pedis and posterior tibialis pulses. Neuro: Alert and responsive, moving all 4 extremities on command, cranial nerves intact, no focal findings Skin: Intact no open lesions, no rash PSYCH: Normal mood, normal affect. Course - Re-evaluation Re-evalutation: 04/06/20 13:[address] scan which reveals L3-4 mild posterior disc bulging with bilateral facet hypertrophy L for L5 mild diffuse posterior disc bulging mild to moderate bilateral facet hypertrophy and central canal narrowing. L5-S1 bulky bilateral facet arthroscopy and no obvious canal or central narrowing noted. Given degenerative disc disease and pain which appears to be sciatic the patient is given Toradol and hydromorphone in the emergency department. I will discuss with the patient starting gabapentin along with Winlock and he has a follow-up on 04/15 with orthopedics. - Vital Signs Vital signs: Temp Pulse Resp BP Pulse Ox 97.8 F 71 18 125/75 96 04/06/20 15:20 04/06/20 15:20 04/06/20 15:20 04/06/20 15:20 04/06/20 15:20 - Laboratory Result Diagrams: 04/06/20 11:40 04/06/20 11:40 Laboratory results interpreted by me: 04/06/20 11:40 Creatine Kinase 30 L I have reviewed laboratory data and used this information for the treatment decisions regarding the patient. - Diagnostic Test Radiology reviewed: Image reviewed, Reports reviewed Radiology results interpreted by me: 04/06/20 13:37 X-ray right femur: No bony fracture or bony changes noted. CT lumbar spine noncontrast: No acute fracture or malalignment there is mild degenerative disc changes and facet arthropathy in the lower lumbar spine. 04/06/20 15:31 Doppler ultrasound right lower extremity, no DVT, no SVT. Discharge - Discharge Clinical Impression: Right leg pain, Sciatica, right side Right lumbar pain Qualifiers: Chronicity: unspecified Sciatica presence: unspecified whether sciatica present Qualified Code(s): M54.5 - Low back pain Condition: Good Disposition: HOME, SELF-CARE Instructions: Low Back Pain ([facility]), Sciatica ([facility]) Additional Instructions: You were seen in the emergency department with pain in the right leg and right lower back. Please take medications as prescribed Winlock, gabapentin. Please follow-up with your pain management/back pain specialist. Follow-up with the orthopedist per your appointment. You were started on gabapentin at 100 mg 3 times a day. After 48 hours if you are not seeing a significant improvement you may increase to 200 mg (2 tablets) 3 times a day. Your symptoms are worsening or if you have other concerns you may return to the emergency department for further evaluation and treatment HOME CARE INSTRUCTIONS & INFORMATION: Thank you for choosing us for your medical needs. We hope you're satisfied with the care you received. After you leave, you must properly care for your problem and, at the same time, observe its progress. Any condition can change. Some illnesses can change rapidly over hours or days. If your condition worsens, return to the Emergency Department or see your physician promptly. ABOUT YOUR X-RAYS AND EKG'S: If you had an EKG or X-rays taken, they have been read by the Emergency Physician. The X-rays and EKG's will also be read by a Radiologist or Tractor Sweeper Driver within 24 hours. If discrepancies are noted, you will be notified by telephone. Please be certain the ED has a correct telephone number & address where you can be reached. Also, realize that some fractures or abnormalities do not show up on initial X-rays. If your symptoms continue, see your physician. ABOUT YOUR LABORATORY TEST: If you had laboratory tests, the results have been reviewed by the Emergency Physician. Some test results (for example cultures) may not be available for several days. You will be contacted if any test result shows you need additional treatment. Please be certain the ED has a correct telephone number and address where you can be reached. ABOUT YOUR MEDICATIONS: You will receive instructions on how to take your medicine on the prescription label you receive. Additional information may be provided by the Pharmacy. If you have questions afterwards, call the ED for clarification or further instructions. Some prescribed medications may cause drowsiness. Do not perform tasks such as driving a car or operating machinery without consulting your Pharmacist. If you feel you need a refill of pain medication, your condition will need re-evaluation. Please do not call for a refill of any medication. ABOUT YOUR SIGNATURE: Signature of this document acknowledges to followin. Understanding that you received emergency treatment and that you may be released before al medical problems are known or treated. Please be certain the ED has a correct phone number & address where you can be reached. 2. Acknowledgement that you will arrange for follow-up care as recommended. 3. Authorization for the Emergency Physician to provide information to your f ollow-up Physician in order to maximize your care. AT ANY TIME, IF YOUR SYMPTOMS CHANGE SIGNIFICANTLY OR WORSEN OR YOU DEVELOP NEW SYMPTOMS, RETURN TO THE EMERGENCY DEPARTMENT IMMEDIATELY FOR RE-EVALUATION. OUR GOAL IS TO PROVIDE EXCELLENT MEDICAL CARE! WE HOPE THAT WE HAVE MET YOUR EXPECTATIONS DURING YOUR EMERGENCY DEPARTMENT VISIT AND THAT YOU FEEL YOU HAVE RECEIVED EXCELLENT CARE! Prescriptions: Gabapentin [Neurontin 100 mg Capsule] 100 mg PO Q8 #60 capsule Hydrocodone/Acetaminophen [Winlock 5-325 mg Tablet] 1 tab PO Q6 PRN #10 tablet PRN Reason: [facility]errals: [facility] [[facility]] - Follow up as needed
[2020-04-06 12:02] LABS: ABSOLUTE BASOPHILS # (AUTO) 0.1 10^3/uL (0.0-0.2); ABSOLUTE EOSINOPHILS # (AUTO) 0.2 10^3/uL (0.0-0.6); ABSOLUTE LYMPHOCYTES (AUTO) 1.5 10^3/uL (0.5-4.7); ABSOLUTE NEUT (AUTO) 5.1 10^3/uL (1.7-8.2); BASOPHILS % (AUTO) 0.7 % (0-2); EOSINOPHILS % (AUTO) 2.3 % (0-6); HEMATOCRIT 47.9 % (37.9-51.0); HEMOGLOBIN 16.6 g/dL (13.5-17.0); LYMPHOCYTES % (AUTO) 19.3 % (13-45); MEAN CORPUSCULAR HGB CONC 34.6 g/dL (32.0-36.0); MEAN CORPUSCULAR VOLUME 95 fl (80-97); MONOCYTES % (AUTO) 12.2 % (3-13); PLATELET COUNT 316 10^3/uL (150-450); RED BLOOD COUNT 5.03 10^6/uL (4.35-5.55); RED CELL DISTRIBUTION WIDTH 13.6 % (11.5-14.0); SEGMENTED NEUTROPHILS % (AUTO) 65.5 % (42-78); TOTAL CELLS COUNTED % (AUTO) 100 %; WHITE BLOOD COUNT 7.8 10^3/uL (4.0-10.5)
--- NOTE | 2020-04-06 12:03 | RADIOLOGY REPORT (SQ) ---
EXAM DESCRIPTION: FEMUR RIGHT IMAGES COMPLETED DATE/TIME: 04/06/2020 11:17 am REASON FOR STUDY: Pain, right thigh COMPARISON: None. NUMBER OF VIEWS: Two views. TECHNIQUE: Two radiographic images acquired of the right femur to include hip and knee in at least o ne projection. LIMITATIONS: None. FINDINGS: MINERALIZATION: Normal. BONES: No acute fracture. No worrisome bone lesions. SOFT TISSUES: No obvious swelling or foreign body. No soft tissue gas. OTHER: No other significant finding. IMPRESSION: NEGATIVE STUDY OF THE RIGHT FEMUR. NO RADIOGRAPHIC EVIDENCE OF ACUTE INJURY. TECHNICAL DOCUMENTATION: JOB ID: [id number] 2010 [employer]- All Rights Reserved Reading location - IP/workstation name: [id number]
[2020-04-06 12:21] LABS: ALBUMIN 4.2 g/dL (3.5-5.0); ALKALINE PHOSPHATASE 46 U/L (38-126); ANION GAP 10 (5-19); ASPARTATE AMINO TRANSFERASE 20 U/L (17-59); BILIRUBIN,DIRECT 0.2 mg/dL (0.0-0.4); BILIRUBIN,TOTAL 0.9 mg/dL (0.2-1.3); BLOOD UREA NITROGEN 19 mg/dL (7-20); CALCIUM 9.9 mg/dL (8.4-10.2); CARBON DIOXIDE 24 mmol/L (22-30); CHLORIDE 104 mmol/L (98-107); CREATINE KINASE 30 U/L (55-170); GLUCOSE 105 mg/dL (75-110); POTASSIUM 4.6 mmol/L (3.6-5.0); TOTAL PROTEIN 6.8 g/dL (6.3-8.2)
--- NOTE | 2020-04-06 12:34 | RADIOLOGY REPORT (SQ) ---
EXAM DESCRIPTION: CT LUMBAR SPINE WITHOUT IMAGES COMPLETED DATE/TIME: 04/06/2020 11:38 am REASON FOR STUDY: Low back pain, right-sided, sciatica COMPARISON: None. TECHNIQUE: Axial images acquired through the lumbar spine without intravenous contrast. Images revi ewed with lung, soft tissue and bone windows. Reconstructed coronal and sagittal MPR images reviewed . All images stored on PACS. All CT scanners at this facility use dose modulation, iterative reconstruction, and/or weight based d osing when appropriate to reduce radiation dose to as low as reasonably achievable (ALARA). [facility]: Dose Right [facility]: CareDose [facility]: Dose Right [facility]: Teradose 4D [facility]: OneTwoTrip RADIATION DOSE: 17 mGy LIMITATIONS: None. FINDINGS: SEGMENTATION: Normal. No transitional anatomy. ALIGNMENT: Normal. VERTEBRAL BODIES: No fractures. No dislocation. No acute findings. DISCS: The T12-L1, L1-2, L2-3 levels are unremarkable. At L3-4, mild posterior disc bulging, mild bilateral facet hypertrophy. No central or foraminal sten osis. At L4-5, mild diffuse posterior disc bulging, [id number] bilateral facet hypertrophy. Borderli ne central canal narrowing. Mild bilateral inferior foraminal narrowing without exit L4 nerve root i mpingement. At L5-S1, bulky bilateral facet arthropathy is present without significant central or foraminal narro wing. PEDICLES, TRANSVERSE PROCESSES: No fractures. No dislocation. No acute findings. FACETS, POSTERIOR ELEMENTS: No fractures. No dislocation. HARDWARE: None in the spine. VISUALIZED RIBS: No fractures. SOFT TISSUES: No significant or acute finding in adjacent soft tissues. OTHER: No other significant finding. IMPRESSION: No acute fracture or malalignment. Mild degenerative disc changes and facet arthropathy lower lumbar spine. TECHNICAL DOCUMENTATION: JOB ID: [id number] Quality ID # [id number]: Final reports with documentation of one or more dose reduction techniques (e.g., Au tomated exposure control, adjustment of the mA and/or kV according to patient size, use of iterative reconstruction technique) 2010 [employer]- All Rights Reserved Reading location - IP/workstation name: [id number]
[2020-04-06] MEDS ORDERED: PROCHLORPERAZINE EDISYLATE INJ 10 MG/2 ML VIAL IV ONE (15:02)
--- NOTE | 2020-04-06 15:06 | RADIOLOGY REPORT (SQ) ---
EXAM DESCRIPTION: VENOUS UNILATERAL LOWER IMAGES COMPLETED DATE/TIME: 04/06/2020 1:42 pm REASON FOR STUDY: Right leg pain/swelling. Right knee surgery 1 week ago. COMPARISON: None. TECHNIQUE: Dynamic and static davila scale and color images acquired of the right leg venous system. S elected spectral images acquired with additional compression and augmentation maneuvers. The contrala teral common femoral vein and saphenofemoral junction were also imaged. Images stored on PACS. LIMITATIONS: None. FINDINGS: COMMON FEMORAL: Normal phasicity, compression and augmentation. No visualized echogenic ma terial on davila scale. No defects on color images. FEMORAL: Normal compression and augmentation. No visualized echogenic material on davila scale. No defe cts on color images. POPLITEAL: Normal compression, augmentation. No visualized echogenic material on davila scale. No defec ts on color images. CALF VESSELS: Normal compression, augmentation. No visualized echogenic material on davila scale. No de fects on color images. GSV and SSV: Normal compression, augmentation. No visualized echogenic material on davila scale. No def ects on color images. ANY DEEP VENOUS INSUFFICIENCY: Not evaluated. ANY EVIDENCE OF POPLITEAL CYST: No. OTHER: There is a complex fluid collection in the right calf just below the knee measuring 3.2 x 0.9 x 2.4 cm. This has the appearance of a postoperative hematoma. CONTRALATERAL COMMON FEMORAL VEIN AND SAPHENOFEMORAL JUNCTION: Normal phasicity, compression and augmentation. No visualized echogenic material on davila scale. No de fects on color images. IMPRESSION: NO EVIDENCE OF DVT OR SVT IN THE RIGHT LEG. SUBCUTANEOUS HEMATOMA IN THE SOFT TISSUES OF THE CALF BELOW THE KNEE. TECHNICAL DOCUMENTATION: JOB ID: [id number] [employer]- All Rights Reserved Reading location - IP/workstation name: [email or web address]
[2020-04-06 15:23] VITALS: BP 125/75
== END 2020-04-06 16:00 | disposition home or self-care (01) ==
LOC: ER 08:51
DX: M54.41 Lumbago with sciatica, right side (principal); M79.604 Pain in right leg; E78.00 Pure hypercholesterolemia, unspecified; I10 Essential (primary) hypertension; E11.9 Type 2 diabetes mellitus without complications; Z79.82 Long term (current) use of aspirin; Z79.84 Long term (current) use of oral hypoglycemic drugs
CPT/HCPCS: 99285; 96360; 36415; 82550; 85025; 80053; 93971; 73552; 72131; J1885; J1170; J7040